=== PATIENT | female | born 1990 | race Caucasian/White ===

== ENCOUNTER 2018-05-18 12:51 | Emergency (ER) | payer SELFPAY ==
[~2018-05-18] VITALS: Ht 162.6 cm; Wt 85.5 kg
[~2018-05-18 12:51] MED LIST: ELETRIPTAN; FLUOXETINE; MOTRIN 600600 MG/TAB PO; NO HOME MEDICATIONS; PENICILLIN V250 MG PO; PREDNISONE20 MG PO; PRENATAL1 TA1 PO
[2018-05-18 13:10] VITALS: BP 115/63; PULSE 98; TEMP 98.1
== END 2018-05-18 13:47 | disposition home or self-care (01) ==
LOC: COL.ER 12:51
DX: S91.202A Unspecified open wound of left great toe with damage to nail, initial encounter (principal); W23.0XXA Caught, crushed, jammed, or pinched between moving objects, initial encounter; Y92.009 Unspecified place in unspecified non-institutional (private) residence as the place of occurrence of the external cause